=== PATIENT | male | born 1990 | race Caucasian/White ===

== ENCOUNTER → 2018-07-07 | Outpatient (REF) | payer MEDICAID | LOC: M LAB REF 17:07 | DX: R30.0 Dysuria (principal) ==

== ENCOUNTER → 2018-08-18 | Outpatient (REF) | payer MEDICAID ==
[2018-08-18 18:03] LABS: ALBUMIN 4.2 GM/DL (3.2-5.2); ALBUMIN/GLOBULIN RATIO 1.24 (1.00-1.93); ALKALINE PHOSPHATASE 100 U/L (45-117); ALT/SGPT 79 U/L (12-78); ANION GAP 7 MEQ/L (8-16); AST/SGOT 28 U/L (7-37); BILIRUBIN,TOTAL 0.6 MG/DL (0.2-1.0); BLOOD UREA NITROGEN 13 MG/DL (7-18); CALCIUM LEVEL 8.8 MG/DL (8.5-10.1); CARBON DIOXIDE LEVEL 29 MEQ/L (21-32); CHLORIDE LEVEL 103 MEQ/L (98-107); CREATININE FOR GFR 1.08 MG/DL (0.70-1.30); FREE THYROXINE INDEX 3.3 % (1.4-3.8); GLOMERULAR FILTRATION RATE > 60.0 (>60); GLUCOSE, FASTING 84 MG/DL (70-100); MAGNESIUM LEVEL 2.1 MG/DL (1.8-2.4); POTASSIUM SERUM 4.1 MEQ/L (3.5-5.1); SODIUM LEVEL 139 MEQ/L (136-145); T UPTAKE 36 % (33-40); THYROXINE (T4) 9.1 UG/DL (4.5-12.0); TOTAL PROTEIN 7.6 GM/DL (6.4-8.2)
[2018-08-18 18:04] LABS: BASO # 0.1 10^3/uL (0.0-0.2); BASO % 0.7 % (0.0-1.0); EOS # 0.3 10^3/uL (0.0-0.50); EOS % 3.4 % (0.0-3.0); HEMATOCRIT 49.1 % (42.0-52.0); HEMOGLOBIN 16.8 g/dl (13.5-17.5); IMMATURE GRANULOCYTE % 0.4 % (0-3.0); LYMPH # 1.6 10^3/uL (1.5-6.5); LYMPH % 20.8 % (24.0-44.0); MEAN CORPUSCULAR HEMOGLOBIN 27.3 pg (27.0-33.0); MEAN CORPUSCULAR HGB CONC 34.2 g/dl (32.0-36.5); MEAN CORPUSCULAR VOLUME 79.8 fl (80.0-96.0); MONO # 0.9 10^3/uL (0.0-0.8); MONO % 12.3 % (0.0-5.0); NEUTROPHILS # 4.7 10^3/uL (1.8-7.7); NEUTROPHILS % 62.4 % (36.0-66.0); PLATELET COUNT, AUTOMATED 238 10^3/uL (150-450); RED BLOOD COUNT 6.15 10^6/uL (4.30-6.10); RED CELL DISTRIBUTION WIDTH 13.2 % (11.5-14.5); TOTAL 25(OH) VITAMIN D 21.1 NG/ML (30.0-100.0); WHITE BLOOD COUNT 7.6 10^3/uL (4.0-10.0)
[2018-08-18 18:20] LABS: ESTIMATED AVERAGE GLUCOSE 108 MG/DL (60-110); HEMOGLOBIN A1c 5.4 %
[2018-08-25 00:40] LABS: SUMMARY FINAL (.)
== END ==
LOC: M LAB REF 17:14
DX: F84.0 Autistic disorder (principal)
CPT/HCPCS: 83735

== ENCOUNTER → 2019-01-09 | Outpatient (REF) | payer OTHER, MEDICAID ==
[2019-01-09 14:21] LABS: BASO % 0.6 % (0.0-1.0); EOS # 0.1 10^3/uL (0.0-0.50); EOS % 2.2 % (0.0-3.0); HEMATOCRIT 50.4 % (42.0-52.0); HEMOGLOBIN 16.6 g/dl (13.5-17.5); LYMPH # 1.8 10^3/uL (1.5-6.5); LYMPH % 32.8 % (24.0-44.0); MEAN CORPUSCULAR HEMOGLOBIN 27.3 pg (27.0-33.0); MEAN CORPUSCULAR HGB CONC 32.9 g/dl (32.0-36.5); MEAN CORPUSCULAR VOLUME 82.9 fl (80.0-96.0); MONO # 0.5 10^3/uL (0.0-0.8); MONO % 9.9 % (0.0-5.0); NEUTROPHILS % 54.3 % (36.0-66.0); PLATELET COUNT, AUTOMATED 237 10^3/uL (150-450); RED BLOOD COUNT 6.08 10^6/uL (4.30-6.10); WHITE BLOOD COUNT 5.5 10^3/uL (4.0-10.0)
[2019-01-09 14:56] LABS: HEMOGLOBIN A1c 5.3 %
[2019-01-09 15:07] LABS: ALBUMIN 4.1 GM/DL (3.2-5.2); ALT/SGPT 51 U/L (12-78); BILIRUBIN,TOTAL 0.7 MG/DL (0.2-1.0); BLOOD UREA NITROGEN 13 MG/DL (7-18); CALCIUM LEVEL 8.7 MG/DL (8.5-10.1); CARBON DIOXIDE LEVEL 29 MEQ/L (21-32); CHLORIDE LEVEL 105 MEQ/L (98-107); CHOLESTEROL LEVEL 188 MG/DL (<200); CHOLESTEROL RISK RATIO 4.372 (<5); CREATININE FOR GFR 1.09 MG/DL (0.70-1.30); FREE T4 0.96 NG/DL (0.76-1.46); GLOMERULAR FILTRATION RATE > 60.0 (>60); GLUCOSE, FASTING 85 MG/DL (70-100); HDL CHOLESTEROL 43 MG/DL (>40); LDL CHOLESTEROL 103 MG/DL (<100); NON-HDL-C 145 MG/DL; POTASSIUM SERUM 3.9 MEQ/L (3.5-5.1); SODIUM LEVEL 140 MEQ/L (136-145); TOTAL 25(OH) VITAMIN D 23.7 NG/ML (30.0-100.0); TOTAL PROTEIN 7.5 GM/DL (6.4-8.2); TRIGLYCERIDES LEVEL 208 MG/DL (<150)
[2019-01-11 00:06] LABS: Lyme Disease IgG/IgM Antibodie <0.91 ISR (0.00-0.90); Lyme Disease IgM Ab Quantitati <0.80 index (0.00-0.79)
== END ==
LOC: M LAB REF 12:40
PROVIDERS: ATTEND Family Medicine
DX: Z13.228 Encounter for screening for other metabolic disorders (principal)

== ENCOUNTER → 2019-04-04 | Outpatient (REF) | payer OTHER, MEDICAID ==
[2019-04-04 18:02] LABS: BASO % 0.5 % (0.0-1.0); EOS # 0.1 10^3/uL (0.0-0.50); EOS % 2.3 % (0.0-3.0); HEMATOCRIT 47.6 % (42.0-52.0); HEMOGLOBIN 16.1 g/dl (13.5-17.5); LYMPH # 1.8 10^3/uL (1.5-6.5); LYMPH % 30.9 % (24.0-44.0); MEAN CORPUSCULAR HEMOGLOBIN 27.5 pg (27.0-33.0); MEAN CORPUSCULAR HGB CONC 33.8 g/dl (32.0-36.5); MEAN CORPUSCULAR VOLUME 81.4 fl (80.0-96.0); MONO # 0.5 10^3/uL (0.0-0.8); NEUTROPHILS # 3.2 10^3/uL (1.8-7.7); NEUTROPHILS % 56.8 % (36.0-66.0); PLATELET COUNT, AUTOMATED 255 10^3/uL (150-450); RED BLOOD COUNT 5.85 10^6/uL (4.30-6.10); WHITE BLOOD COUNT 5.7 10^3/uL (4.0-10.0)
[2019-04-04 18:16] LABS: ALBUMIN 4.3 GM/DL (3.2-5.2); ALT/SGPT 48 U/L (12-78); BILIRUBIN,TOTAL 0.7 MG/DL (0.2-1.0); BLOOD UREA NITROGEN 13 MG/DL (7-18); CALCIUM LEVEL 9.1 MG/DL (8.5-10.1); CARBON DIOXIDE LEVEL 30 MEQ/L (21-32); CHLORIDE LEVEL 106 MEQ/L (98-107); CREATININE FOR GFR 1.02 MG/DL (0.70-1.30); FREE THYROXINE INDEX 3.2 % (1.4-3.8); GLOMERULAR FILTRATION RATE > 60.0 (>60); GLUCOSE, FASTING 81 MG/DL (70-100); POTASSIUM SERUM 4.2 MEQ/L (3.5-5.1); SODIUM LEVEL 141 MEQ/L (136-145); T UPTAKE 34 % (33-40); THYROXINE (T4) 9.4 UG/DL (4.5-12.0); TOTAL 25(OH) VITAMIN D 35.5 NG/ML (30.0-100.0); TOTAL PROTEIN 7.4 GM/DL (6.4-8.2)
[2019-04-04 18:41] LABS: HEMOGLOBIN A1c 5.7 %
== END ==
LOC: M LAB REF 16:45
PROVIDERS: ATTEND Psychiatry & Neurology Child & Adolescent Psychiatry
DX: F33.2 Major depressive disorder, recurrent severe without psychotic features (principal)

== ENCOUNTER → 2019-07-06 | Outpatient (REF) | payer OTHER, MEDICAID ==
[2019-07-06 16:58] LABS: BASO % 0.7 % (0.0-1.0); EOS # 0.1 10^3/uL (0.0-0.5); EOS % 2.3 % (0.0-3.0); HEMATOCRIT 48.1 % (42.0-52.0); HEMOGLOBIN 15.9 g/dl (13.5-17.5); LYMPH # 1.4 10^3/uL (1.5-5.0); LYMPH % 32.6 % (24.0-44.0); MEAN CORPUSCULAR HEMOGLOBIN 26.9 pg (27.0-33.0); MEAN CORPUSCULAR HGB CONC 33.1 g/dl (32.0-36.5); MEAN CORPUSCULAR VOLUME 81.5 fl (80.0-96.0); MONO # 0.4 10^3/uL (0.0-0.8); MONO % 8.6 % (0.0-5.0); NEUTROPHILS # 2.5 10^3/uL (1.5-8.5); NEUTROPHILS % 55.6 % (36.0-66.0); PLATELET COUNT, AUTOMATED 244 10^3/uL (150-450); WHITE BLOOD COUNT 4.4 10^3/uL (4.0-10.0)
[2019-07-06 17:11] LABS: ALBUMIN 4.5 GM/DL (3.2-5.2); ALT/SGPT 30 U/L (12-78); BLOOD UREA NITROGEN 14 MG/DL (7-18); CALCIUM LEVEL 9.6 MG/DL (8.5-10.1); CARBON DIOXIDE LEVEL 32 MEQ/L (21-32); CHLORIDE LEVEL 103 MEQ/L (98-107); CHOLESTEROL LEVEL 155 MG/DL (<200); CREATININE FOR GFR 1.15 MG/DL (0.70-1.30); FREE T4 1.07 NG/DL (0.76-1.46); GLOMERULAR FILTRATION RATE > 60.0 (>60); GLUCOSE, FASTING 79 MG/DL (70-100); HDL CHOLESTEROL 52 MG/DL (>40); LDL CHOLESTEROL 78 MG/DL (<100); NON-HDL-C 103 MG/DL; POTASSIUM SERUM 3.8 MEQ/L (3.5-5.1); SODIUM LEVEL 140 MEQ/L (136-145); TOTAL PROTEIN 7.8 GM/DL (6.4-8.2); TRIGLYCERIDES LEVEL 125 MG/DL (<150)
[2019-07-06 17:13] LABS: TOTAL 25(OH) VITAMIN D 47.8 NG/ML (30.0-100.0)
[2019-07-06 17:29] LABS: HEMOGLOBIN A1c 5.2 %
== END ==
LOC: M LAB REF 16:21
PROVIDERS: ATTEND Family Medicine
DX: Z13.228 Encounter for screening for other metabolic disorders (principal)

== ENCOUNTER → 2019-10-04 | Outpatient (REF) | payer OTHER, MEDICAID ==
[2019-10-04 15:15] LABS: ALBUMIN 4.7 GM/DL (3.2-5.2); ALT/SGPT 31 U/L (12-78); BILIRUBIN,TOTAL 0.8 MG/DL (0.2-1.0); BLOOD UREA NITROGEN 16 MG/DL (7-18); CALCIUM LEVEL 9.6 MG/DL (8.5-10.1); CARBON DIOXIDE LEVEL 33 MEQ/L (21-32); CHLORIDE LEVEL 103 MEQ/L (98-107); CREATININE FOR GFR 1.24 MG/DL (0.70-1.30); GLOMERULAR FILTRATION RATE > 60.0 (>60); GLUCOSE, FASTING 82 MG/DL (70-100); POTASSIUM SERUM 4.4 MEQ/L (3.5-5.1); SODIUM LEVEL 141 MEQ/L (136-145); TOTAL PROTEIN 7.7 GM/DL (6.4-8.2)
[2019-10-04 15:31] LABS: HEMOGLOBIN A1c 5.4 %
== END ==
LOC: M LAB REF 13:10
PROVIDERS: ATTEND Family Medicine
DX: R73.03 Prediabetes (principal)

== ENCOUNTER → 2020-04-28 | Outpatient (REF) | payer OTHER, MEDICAID ==
[2020-04-28 18:05] LABS: ALBUMIN 4.5 GM/DL (3.2-5.2); ALT/SGPT 32 U/L (12-78); BLOOD UREA NITROGEN 14 MG/DL (7-18); CALCIUM LEVEL 9.2 MG/DL (8.5-10.1); CARBON DIOXIDE LEVEL 33 MEQ/L (21-32); CHLORIDE LEVEL 102 MEQ/L (98-107); CHOLESTEROL LEVEL 165 MG/DL (<200); CHOLESTEROL RISK RATIO 3.666 (<5); CREATININE FOR GFR 1.03 MG/DL (0.70-1.30); GLOMERULAR FILTRATION RATE > 60.0 (>60); GLUCOSE, FASTING 79 MG/DL (70-100); HDL CHOLESTEROL 45 MG/DL (>40); LDL CHOLESTEROL 96 MG/DL (<100); NON-HDL-C 120 MG/DL; SODIUM LEVEL 139 MEQ/L (136-145); TOTAL PROTEIN 7.5 GM/DL (6.4-8.2); TRIGLYCERIDES LEVEL 120 MG/DL (<150)
[2020-04-28 18:43] LABS: HEMOGLOBIN A1c 5.3 %
== END ==
LOC: M LAB REF 17:20
PROVIDERS: ATTEND Family Medicine Addiction Medicine
DX: R73.03 Prediabetes (principal)

== ENCOUNTER → 2020-07-17 | Outpatient (REF) | payer OTHER, MEDICAID ==
[2020-07-17 14:04] LABS: ALBUMIN 4.4 GM/DL (3.2-5.2); ALT/SGPT 40 U/L (12-78); BILIRUBIN,TOTAL 0.9 MG/DL (0.2-1.0); BLOOD UREA NITROGEN 15 MG/DL (7-18); CALCIUM LEVEL 9.3 MG/DL (8.5-10.1); CARBON DIOXIDE LEVEL 29 MEQ/L (21-32); CHLORIDE LEVEL 103 MEQ/L (98-107); CHOLESTEROL LEVEL 177 MG/DL (<200); CHOLESTEROL RISK RATIO 3.339 (<5); CREATININE FOR GFR 1.08 MG/DL (0.70-1.30); GLOMERULAR FILTRATION RATE > 60.0 (>60); GLUCOSE, FASTING 86 MG/DL (70-100); HDL CHOLESTEROL 53 MG/DL (>40); LDL CHOLESTEROL 101 MG/DL (<100); NON-HDL-C 124 MG/DL; POTASSIUM SERUM 4.3 MEQ/L (3.5-5.1); SODIUM LEVEL 140 MEQ/L (136-145); TOTAL PROTEIN 7.6 GM/DL (6.4-8.2); TRIGLYCERIDES LEVEL 115 MG/DL (<150)
== END ==
LOC: M LAB REF 12:07
PROVIDERS: ATTEND Family Medicine Addiction Medicine
DX: R73.03 Prediabetes (principal)

== ENCOUNTER → 2020-07-22 | Outpatient (REF) | payer OTHER, MEDICAID ==
[2020-07-22 14:41] LABS: HEMOGLOBIN A1c 5.2 %
== END ==
LOC: M LAB REF 12:31
PROVIDERS: ATTEND Family Medicine Addiction Medicine
DX: R73.03 Prediabetes (principal)

== ENCOUNTER → 2021-02-20 | Outpatient (REF) | payer OTHER, MEDICAID ==
[2021-02-20 19:34] LABS: BLOOD UREA NITROGEN 12 MG/DL (7-18); CARBON DIOXIDE LEVEL 35 MEQ/L (21-32); CHLORIDE LEVEL 102 MEQ/L (98-107); CREATININE FOR GFR 0.93 MG/DL (0.70-1.30); GLOMERULAR FILTRATION RATE > 60.0 (>60); GLUCOSE, FASTING 88 MG/DL (70-100); POTASSIUM SERUM 4.8 MEQ/L (3.5-5.1); SODIUM LEVEL 137 MEQ/L (136-145)
[2021-02-20 19:35] LABS: ALBUMIN 4.2 GM/DL (3.2-5.2); ALT/SGPT 62 U/L (12-78); BILIRUBIN,TOTAL 0.7 MG/DL (0.2-1.0); CHOLESTEROL LEVEL 179 MG/DL (<200); HDL CHOLESTEROL 50 MG/DL (>40); LDL CHOLESTEROL 93 MG/DL (<100); NON-HDL-C 129 MG/DL; TOTAL PROTEIN 7.5 GM/DL (6.4-8.2); TRIGLYCERIDES LEVEL 178 MG/DL (<150)
== END ==
LOC: M LAB REF 16:24
PROVIDERS: ATTEND Family Medicine Addiction Medicine
DX: Z00.01 Encounter for general adult medical examination with abnormal findings (principal); R73.03 Prediabetes

== ENCOUNTER 2021-03-30 16:02 | Emergency (ER) | payer MEDICAID, OTHER ==
[~2021-03-30] VITALS: Ht 185.4 cm; Wt 104.6 kg
[2021-03-30] MEDS ORDERED: FLUO40CA (16:15)
[2021-03-30] MEDS ORDERED: PRAZ5CAP (16:15)
[2021-03-30] MEDS ORDERED: ZIPR60CA11 (16:15)
[2021-03-30] MEDS ORDERED: TRAZ-257 (16:15)
[2021-03-30 18:49] LABS: HEMATOCRIT 48.1 % (42.0-52.0); HEMOGLOBIN 15.7 g/dl (13.5-17.5); MEAN CORPUSCULAR HEMOGLOBIN 27.7 pg (27.0-33.0); MEAN CORPUSCULAR HGB CONC 32.6 g/dl (32.0-36.5); MEAN CORPUSCULAR VOLUME 84.8 fl (80.0-96.0); PLATELET COUNT, AUTOMATED 234 10^3/uL (150-450); RED BLOOD COUNT 5.67 10^6/uL (4.30-6.10)
--- NOTE | 2021-03-30 19:12 | REP ---
INDICATION: central chest pain. COMPARISON: None. TECHNIQUE: Portable FINDINGS: The cardiomediastinal silhouette is within normal limits. The heart is not enlarged. The lung cerna are clear. The pleural angles are sharp. The osseous structures are within normal limits. IMPRESSION: No acute cardiopulmonary disease. <Electronically signed by Berry Brian > 03/30/21 [id number]
[2021-03-30 19:16] LABS: ALBUMIN 4.1 GM/DL (3.2-5.2); ALT/SGPT 74 U/L (12-78); BILIRUBIN,TOTAL 0.5 MG/DL (0.2-1.0); BLOOD UREA NITROGEN 19 MG/DL (7-18); CALCIUM LEVEL 8.9 MG/DL (8.5-10.1); CARBON DIOXIDE LEVEL 29 MEQ/L (21-32); CHLORIDE LEVEL 103 MEQ/L (98-107); CK-MB VALUE MASS < 1.0 NG/ML (<3.6); CPK CREATINE PHOSPHOKINASE 120 U/L (39-308); CREATININE FOR GFR 1.02 MG/DL (0.70-1.30); GLOMERULAR FILTRATION RATE > 60.0 (>60); GLUCOSE, FASTING 85 MG/DL (70-100); LIPASE 124 U/L (73-393); MB/CK RELATIVE INDEX 0.83 (< OR =4); SODIUM LEVEL 139 MEQ/L (136-145); TOTAL PROTEIN 7.4 GM/DL (6.4-8.2); TROPONIN I < 0.02 NG/ML (< 0.10)
[2021-03-30 19:39] VITALS: BP 129/82
--- NOTE | 2021-03-30 20:42 | ECGEPIP ---
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 Order Number: [id number] Reading MD: Adwoa Schwab Measurements Intervals [place] Rate: 64 P: 55 UT: 128 QRS: 73 QRSD: 106 T: 24 QT: 416 QTc: 429 Interpretive Statements Normal sinus rhythm No prior Electronically Signed on 03-30-2021 20:42:00 EDT by Adwoa Schwab
== END 2021-03-30 19:41 | disposition home or self-care (01) ==
LOC: M ED 16:02
DX: R07.89 Other chest pain (principal); Z79.899 Other long term (current) drug therapy

== ENCOUNTER 2022-03-01 18:49 | Emergency (ER) | payer OTHER ==
[~2022-03-01] VITALS: Ht 185.4 cm; Wt 119.4 kg
[~2022-03-01 18:49] MED LIST: FLUO40CA; PRAZ5CAP; TRAZ-257; ZIPR60CA11
[2022-03-01] MEDS ORDERED: ZIPR40CA11 (19:01)
[2022-03-01] MEDS ORDERED: VITA200016 (19:01)
[2022-03-01] MEDS ORDERED: GUAN2TAB15 (19:01)
[2022-03-01] MEDS ORDERED: HEPATITIS B VACCINE 20MCG/ML 1ML SYRINGE (ADULT DOSE) IM.IMMUN ONE (23:30)
[2022-03-01] MEDS ORDERED: EXPOSURE KIT-ADULT 7 DAY SUPPLY PO ONE (23:30)
[2022-03-01] MEDS ORDERED: BOOSTRIX/ADACEL VACCINE (DIPHTH/PERTUSS/ACELL/TETANUS) 0.5ML SYR IM.IMMUN ONE (23:30)
[2022-03-01] MEDS ORDERED: EMTR1TAB16 PO (23:32)
[2022-03-01] MEDS ORDERED: RALT40TA PO (23:32)
[2022-03-02] MEDS ORDERED: RALTEGRAVIR 400 MG TAB (ISENTRESS) PO SCH
[2022-03-02 00:14] LABS: BASO % 0.5 % (0.0-1.0); EOS # 0.2 10^3/uL (0.0-0.5); EOS % 2.7 % (0.0-3.0); HEMATOCRIT 45.2 % (42.0-52.0); HEMOGLOBIN 15.4 g/dl (13.5-17.5); LYMPH # 2.4 10^3/uL (1.5-5.0); LYMPH % 31.8 % (24.0-44.0); MEAN CORPUSCULAR HEMOGLOBIN 27.7 pg (27.0-33.0); MEAN CORPUSCULAR HGB CONC 34.1 g/dl (32.0-36.5); MEAN CORPUSCULAR VOLUME 81.4 fl (80.0-96.0); MONO # 0.8 10^3/uL (0.0-0.8); MONO % 9.8 % (2.0-8.0); NEUTROPHILS # 4.2 10^3/uL (1.5-8.5); NEUTROPHILS % 54.3 % (36.0-66.0); PLATELET COUNT, AUTOMATED 282 10^3/uL (150-450); RED BLOOD COUNT 5.55 10^6/uL (4.30-6.10); WHITE BLOOD COUNT 7.7 10^3/uL (4.0-10.0)
[2022-03-02 00:31] LABS: ALBUMIN 4.3 GM/DL (3.2-5.2); ALT/SGPT 141 U/L (12-78); BILIRUBIN,TOTAL 0.5 MG/DL (0.2-1.0); BLOOD UREA NITROGEN 19 MG/DL (7-18); CALCIUM LEVEL 8.9 MG/DL (8.5-10.1); CARBON DIOXIDE LEVEL 29 MEQ/L (21-32); CHLORIDE LEVEL 103 MEQ/L (98-107); CREATININE FOR GFR 0.98 MG/DL (0.70-1.30); GLOMERULAR FILTRATION RATE > 60.0 (>60); GLUCOSE, FASTING 94 MG/DL (70-100); SODIUM LEVEL 139 MEQ/L (136-145); TOTAL PROTEIN 7.7 GM/DL (6.4-8.2)
[2022-03-02 01:32] VITALS: BP 128/68
[2022-03-02] MEDS ORDERED: RALTEGRAVIR 400 MG TAB (ISENTRESS) PO ONE (02:00)
[2022-03-02] MEDS ORDERED: TRUVADA 200MG/300MG TABLET PO ONE (02:00)
[2022-03-02 08:59] LABS: HEPATITIS B SURFACE ANTIBODY POSITIVE (POSITIVE)
[2022-03-02 09:10] LABS: HEPATITIS B SURFACE ANTIGEN NEGATIVE (NEGATIVE)
[2022-03-02 09:38] LABS: HEPATITIS C VIRUS ABY INDEX 0.1 INDEX (<0.8)
[2022-03-02 09:39] LABS: HIV 1&2 SCREEN CENTAUR NEGATIVE (NEGATIVE)
[2022-03-03] MEDS ORDERED: TRUVADA 200MG/300MG TABLET PO SCH
== END 2022-03-02 01:44 | disposition home or self-care (01) ==
LOC: M ED 18:49
DX: Z77.21 Contact with and (suspected) exposure to potentially hazardous body fluids (principal)

== ENCOUNTER 2022-05-10 19:40 | Inpatient (IN) | payer OTHER ==
[~2022-05-10] VITALS: Ht 182.9 cm; Wt 120.5 kg
[~2022-05-10 19:40] MED LIST changes: +EMTR1TAB16 PO; -FLUO40CA; +FLUO40CA PO; +GUAN2TAB15 PO; -PRAZ5CAP; +PRAZ5CAP PO; +RALT40TA PO; -TRAZ-257; +TRAZ-257 PO; +VITA200016 PO; +ZIPR40CA11 PO; -ZIPR60CA11; +ZIPR60CA11 PO
[2022-05-10 21:43] LABS: HEMATOCRIT 46.8 % (42.0-52.0); HEMOGLOBIN 16.2 g/dl (13.5-17.5); MEAN CORPUSCULAR HEMOGLOBIN 28.4 pg (27.0-33.0); MEAN CORPUSCULAR HGB CONC 34.6 g/dl (32.0-36.5); MEAN CORPUSCULAR VOLUME 82.1 fl (80.0-96.0); PLATELET COUNT, AUTOMATED 260 10^3/uL (150-450); WHITE BLOOD COUNT 6.4 10^3/uL (4.0-10.0)
[2022-05-10 22:24] LABS: AMPHETAMINES LEVEL URINE NEGATIVE (NEGATIVE); BARBITURATES URINE NEGATIVE (NEGATIVE); BENZODIAZEPINES URINE NEGATIVE (NEGATIVE); CANNABINOIDS URINE NEGATIVE (NEGATIVE); COCAINE METABOLITE URINE NEGATIVE (NEGATIVE); METHADONE URINE NEGATIVE (NEGATIVE); OPIATES URINE NEGATIVE (NEGATIVE); PHENCYCLIDINE URINE NEGATIVE (NEGATIVE)
[2022-05-10 22:37] LABS: ACETAMINOPHEN LEVEL < 2.0 UG/ML (10.0-30.0); ALT/SGPT 111 U/L (12-78); BILIRUBIN,DIRECT 0.1 MG/DL (0.0-0.2); BILIRUBIN,TOTAL 0.5 MG/DL (0.2-1.0); BLOOD UREA NITROGEN 13 MG/DL (7-18); CALCIUM LEVEL 9.7 MG/DL (8.5-10.1); CARBON DIOXIDE LEVEL 28 MEQ/L (21-32); CHLORIDE LEVEL 104 MEQ/L (98-107); CREATININE FOR GFR 1.09 MG/DL (0.70-1.30); ETHYL ALCOHOL (ETHANOL) < 0.003 % (0.000-0.010); GLOMERULAR FILTRATION RATE > 60.0 (>60); GLUCOSE, FASTING 93 MG/DL (70-100); POTASSIUM SERUM 3.8 MEQ/L (3.5-5.1); SALICYLATE LEVEL < 1.7 MG/DL (5.0-30.0); SODIUM LEVEL 137 MEQ/L (136-145); TOTAL PROTEIN 7.5 GM/DL (6.4-8.2)
[2022-05-11 00:25] LABS: RSV AMPLIFICATION NEGATIVE (NEGATIVE)
[2022-05-11] MEDS ORDERED: LORazepam 2 MG TAB PO ONE (04:00)
[2022-05-11] MEDS ORDERED: HYDR-3363 PO (08:49)
[2022-05-11] MEDS ORDERED: HOME MED LIST COMPLETE! XX SCH (08:55)
[2022-05-11] MEDS: ZIPRASIDONE 20MG CAPSULE (GEODON) PO SCH ×2 (10:18→21:49)
[2022-05-11] MEDS: guanFACINE 1 MG TAB PO SCH ×2 (10:19→21:49)
[2022-05-11] MEDS: FLUoxetine 20MG CAP PO SCH (21:49)
[2022-05-11] MEDS: traZODone 100 MG TAB PO SCH (21:49)
[2022-05-11] MEDS: PRAZOSIN 1 MG CAP PO SCH (22:45)
[2022-05-12] MEDS: ZIPRASIDONE 20MG CAPSULE (GEODON) PO SCH ×2 (08:57→22:24)
[2022-05-12] MEDS: guanFACINE 1 MG TAB PO SCH ×2 (08:58→22:25)
[2022-05-12] MEDS: traZODone 100 MG TAB PO SCH (22:24)
[2022-05-12] MEDS: PRAZOSIN 1 MG CAP PO SCH (22:24)
[2022-05-12] MEDS: FLUoxetine 20MG CAP PO SCH (22:25)
[2022-05-13] MEDS: ZIPRASIDONE 20MG CAPSULE (GEODON) PO SCH ×2 (10:26→22:48)
[2022-05-13] MEDS: guanFACINE 1 MG TAB PO SCH ×2 (12:03→22:47)
[2022-05-13] MEDS ORDERED: NICOTINE 21MG/24HR 1 EA TRANSDERMAL TD PRN (19:55)
[2022-05-13] MEDS ORDERED: traZODone 100 MG TAB PO SCH (19:55)
[2022-05-13] MEDS ORDERED: OLANZapine ORAL DISINTEGRATING TAB 5MG PO PRN (19:55)
[2022-05-13] MEDS ORDERED: MOM 30ML SUSPENSION UDC PO PRN (19:55)
[2022-05-13] MEDS ORDERED: ACETAMINOPHEN TAB 650MG DOSE (2X325MG) PO PRN (19:55)
[2022-05-13 22:26] VITALS: BP 132/83
[2022-05-13] MEDS: traZODone 100 MG TAB PO SCH (22:47)
[2022-05-13] MEDS: PRAZOSIN 1 MG CAP PO SCH (22:48)
[2022-05-14 06:44] VITALS: BP 115/62
[2022-05-14] MEDS: guanFACINE 1 MG TAB PO SCH ×2 (10:02→21:18)
[2022-05-14] MEDS: VITAMIN D 1,000 INTERNATIONAL UNITS TABLET PO SCH (10:02)
[2022-05-14] MEDS: ZIPRASIDONE 20MG CAPSULE (GEODON) PO SCH ×2 (10:02→21:18)
[2022-05-14] MEDS ORDERED: risperiDONE 1 MG TAB PO PRN (13:35)
[2022-05-14 17:30] VITALS: BP 120/62
[2022-05-14] MEDS: PRAZOSIN 1 MG CAP PO SCH (21:18)
[2022-05-14] MEDS: traZODone 100 MG TAB PO SCH (21:18)
[2022-05-15 06:17] VITALS: BP 119/69
[2022-05-15 07:54] LABS: CHOLESTEROL RISK RATIO 5.487 (<5)
[2022-05-15] MEDS: buPROPion **XL** TABLET 150MG (WELLBUTRIN XL) PO SCH (09:15)
[2022-05-15] MEDS: guanFACINE 1 MG TAB PO SCH ×2 (09:15→21:34)
[2022-05-15] MEDS: ZIPRASIDONE 20MG CAPSULE (GEODON) PO SCH ×2 (09:15→21:34)
[2022-05-15] MEDS: VITAMIN D 1,000 INTERNATIONAL UNITS TABLET PO SCH (09:18)
[2022-05-15 18:09] VITALS: BP 128/81
[2022-05-15] MEDS: traZODone 100 MG TAB PO SCH (21:34)
[2022-05-15] MEDS: PRAZOSIN 1 MG CAP PO SCH (21:34)
[2022-05-16] MEDS: VITAMIN D 1,000 INTERNATIONAL UNITS TABLET PO SCH (09:07)
[2022-05-16] MEDS: guanFACINE 1 MG TAB PO SCH ×2 (09:07→21:44)
[2022-05-16] MEDS: buPROPion **XL** TABLET 150MG (WELLBUTRIN XL) PO SCH (09:08)
[2022-05-16] MEDS: ZIPRASIDONE 20MG CAPSULE (GEODON) PO SCH ×2 (09:08→21:44)
[2022-05-16 17:33] VITALS: BP 119/76
[2022-05-16] MEDS: PRAZOSIN 1 MG CAP PO SCH (21:43)
[2022-05-16] MEDS: traZODone 100 MG TAB PO SCH (21:44)
[2022-05-16] MEDS: MAALOX 30 ML SUSP *UDC PO PRN (23:55)
[2022-05-17 07:35] VITALS: BP 120/84
[2022-05-17] MEDS: guanFACINE 1 MG TAB PO SCH ×2 (09:09→21:28)
[2022-05-17] MEDS: VITAMIN D 1,000 INTERNATIONAL UNITS TABLET PO SCH (09:09)
[2022-05-17] MEDS: buPROPion **XL** TABLET 150MG (WELLBUTRIN XL) PO SCH (09:10)
[2022-05-17] MEDS: ZIPRASIDONE 20MG CAPSULE (GEODON) PO SCH ×2 (09:10→21:28)
[2022-05-17 16:00] VITALS: BP 136/70
[2022-05-17] MEDS: traZODone 100 MG TAB PO SCH (21:28)
[2022-05-17] MEDS: PRAZOSIN 1 MG CAP PO SCH (21:28)
[2022-05-17] MEDS: MAALOX 30 ML SUSP *UDC PO PRN (21:41)
[2022-05-18 06:28] VITALS: BP 117/77
[2022-05-18 07:39] VITALS: BP 117/77
[2022-05-18] MEDS: guanFACINE 1 MG TAB PO SCH (07:39)
[2022-05-18] MEDS: buPROPion **XL** TABLET 150MG (WELLBUTRIN XL) PO SCH (07:39)
[2022-05-18] MEDS: ZIPRASIDONE 20MG CAPSULE (GEODON) PO SCH (07:39)
[2022-05-18] MEDS: VITAMIN D 1,000 INTERNATIONAL UNITS TABLET PO SCH (07:40)
[2022-05-18] MEDS ORDERED: BUPR150T12 PO (08:27)
[2022-05-18] MEDS ORDERED: TRAZ-257 PO (08:27)
[2022-05-18] MEDS ORDERED: NICO21PAT TD (08:27)
[2022-05-18] MEDS ORDERED: ZIPR60CA11 PO (08:27)
[2022-05-18] MEDS ORDERED: GUAN1TA PO (08:27)
[2022-05-18] MEDS ORDERED: ZIPR40CA11 PO (08:27)
[2022-05-18] MEDS ORDERED: PRAZ5CAP PO (08:27)
[2022-05-18] MEDS ORDERED: risperiDONE 1 MG TAB PO SCH (08:30)
[2022-05-18] MEDS: MAALOX 30 ML SUSP *UDC PO PRN (10:47)
== END 2022-05-18 12:48 | disposition home or self-care (01) | DRG 753 ==
LOC: M ED 19:40 → M ED INP 05-13 20:59 → M PSY 05-13 21:22
PROVIDERS: ADMIT Student in an Organized Health Care Education/Training Program; ATTEND Student in an Organized Health Care Education/Training Program
DX: F31.9 Bipolar disorder, unspecified (principal); Z91.14 Patient's other noncompliance with medication regimen; E55.9 Vitamin D deficiency, unspecified; R73.03 Prediabetes; B88.8 Other specified infestations; F42.9 Obsessive-compulsive disorder, unspecified; F84.0 Autistic disorder; F90.9 Attention-deficit hyperactivity disorder, unspecified type; Z81.8 Family history of other mental and behavioral disorders; Z62.811 Personal history of psychological abuse in childhood; Z62.810 Personal history of physical and sexual abuse in childhood; Z79.899 Other long term (current) drug therapy; Z91.018 Allergy to other foods

== ENCOUNTER → 2022-12-02 | Outpatient (REF) | payer OTHER, MEDICAID ==
[~2022-12-02] MED LIST changes: +BUPR150T12 PO; +GUAN1TA PO; +HYDR-3363 PO; +NICO21PAT TD
[2022-12-02 18:51] LABS: ALBUMIN 4.2 G/DL (3.2-5.2); ALKALINE PHOSPHATASE 102 U/L (46-116); ALT/SGPT 165 U/L (7.0-40); AST/SGOT 61 U/L (<34); BILIRUBIN,TOTAL 0.6 MG/DL (0.3-1.2); BLOOD UREA NITROGEN 13 MG/DL (9-23); CALCIUM LEVEL 9.7 MG/DL (8.5-10.1); CARBON DIOXIDE LEVEL 28 MMOL/L (20-31); CHLORIDE LEVEL 105 MMOL/L (98-107); CREATININE FOR GFR 0.95 MG/DL (0.70-1.30); GLOMERULAR FILTRATION RATE > 60.0 (>60); GLUCOSE, FASTING 83 MG/DL (60-100); POTASSIUM SERUM 4.2 MMOL/L (3.5-5.1); SODIUM LEVEL 139 MMOL/L (136-145); TOTAL PROTEIN 7.1 G/DL (5.7-8.2)
[2022-12-02 18:52] LABS: FREE T4 1.09 NG/DL (0.89-1.76); THYROID STIMULATING HORMONE 1.838 uIU/ML (0.55-4.78)
[2022-12-02 18:53] LABS: TOTAL 25(OH) VITAMIN D 40.7 NG/ML (20.0-100.0)
[2022-12-02 18:58] LABS: BASO % 0.8 % (0.0-1.0); EOS # 0.1 10^3/uL (0.0-0.5); EOS % 2.5 % (0.0-3.0); HEMATOCRIT 47.9 % (42.0-52.0); HEMOGLOBIN 15.9 g/dl (13.5-17.5); LYMPH # 1.4 10^3/uL (1.5-5.0); LYMPH % 25.9 % (24.0-44.0); MEAN CORPUSCULAR HEMOGLOBIN 27.7 pg (27.0-33.0); MEAN CORPUSCULAR HGB CONC 33.2 g/dl (32.0-36.5); MEAN CORPUSCULAR VOLUME 83.4 fl (80.0-96.0); MONO # 0.6 10^3/uL (0.0-0.8); MONO % 12.1 % (2.0-8.0); NEUTROPHILS # 3.1 10^3/uL (1.5-8.5); NEUTROPHILS % 58.3 % (36.0-66.0); PLATELET COUNT, AUTOMATED 259 10^3/uL (150-450); RED BLOOD COUNT 5.74 10^6/uL (4.30-6.10); WHITE BLOOD COUNT 5.2 10^3/uL (4.0-10.0)
== END ==
LOC: M LAB REF 17:16
PROVIDERS: ATTEND Family Medicine Addiction Medicine
DX: E55.9 Vitamin D deficiency, unspecified (principal); E66.3 Overweight; R53.83 Other fatigue

== ENCOUNTER → 2023-01-11 | Outpatient (REF) | payer OTHER, MEDICAID ==
[2023-01-11 13:13] LABS: ALBUMIN 4.4 G/DL (3.2-5.2); ALKALINE PHOSPHATASE 104 U/L (46-116); ALT/SGPT 112 U/L (7.0-40); AST/SGOT 40 U/L (<34); BILIRUBIN,TOTAL 0.8 MG/DL (0.3-1.2); BLOOD UREA NITROGEN 17 MG/DL (9-23); CALCIUM LEVEL 9.4 MG/DL (8.5-10.1); CARBON DIOXIDE LEVEL 26 MMOL/L (20-31); CHLORIDE LEVEL 104 MMOL/L (98-107); CHOLESTEROL LEVEL 189 MG/DL (<200); CHOLESTEROL RISK RATIO 4.38 (<5); CREATININE FOR GFR 1.07 MG/DL (0.70-1.30); GLOMERULAR FILTRATION RATE > 60.0 (>60); GLUCOSE, FASTING 102 MG/DL (60-100); HDL CHOLESTEROL 43.1 MG/DL (>40); LDL CHOLESTEROL 70.9 MG/DL (<100); NON-HDL-C 145.9 MG/DL; SODIUM LEVEL 137 MMOL/L (136-145); TOTAL PROTEIN 7.4 G/DL (5.7-8.2); TRIGLYCERIDES LEVEL 375 MG/DL (<150)
[2023-01-11 13:15] LABS: THYROID STIMULATING HORMONE 1.337 uIU/ML (0.55-4.78); TOTAL 25(OH) VITAMIN D 41.1 NG/ML (20.0-100.0)
[2023-01-11 13:25] LABS: HEMOGLOBIN A1c 5.6 % (4.0-6.0)
== END ==
LOC: M LAB REF 12:02
PROVIDERS: ATTEND Family Medicine Addiction Medicine
DX: R73.03 Prediabetes (principal); E55.9 Vitamin D deficiency, unspecified

== ENCOUNTER 2023-06-10 20:59 | Emergency (ER) | payer OTHER ==
[~2023-06-10] VITALS: Ht 185.4 cm; Wt 59.1 kg
[~2023-06-10 20:59] MED LIST changes: +TRIA25CR TOP
[2023-06-10 22:04] LABS: HEMATOCRIT 43.9 % (42.0-52.0); HEMOGLOBIN 15.1 g/dl (13.5-17.5); MEAN CORPUSCULAR HEMOGLOBIN 28.5 pg (27.0-33.0); MEAN CORPUSCULAR HGB CONC 34.4 g/dl (32.0-36.5); PLATELET COUNT, AUTOMATED 268 10^3/uL (150-450); RED BLOOD COUNT 5.29 10^6/uL (4.30-6.10); WHITE BLOOD COUNT 6.6 10^3/uL (4.0-10.0)
[2023-06-10 22:24] LABS: ETHYL ALCOHOL (ETHANOL) < 0.003 % (0.000-0.010)
[2023-06-10 22:25] LABS: ACETAMINOPHEN LEVEL < 2.0 UG/ML (10.0-20.0); SALICYLATE LEVEL < 3.0 MG/DL (<30)
[2023-06-10 22:26] LABS: ALBUMIN 4.2 G/DL (3.2-5.2); ALKALINE PHOSPHATASE 108 U/L (46-116); ALT/SGPT 110 U/L (7.0-40); AST/SGOT 44 U/L (<34); BILIRUBIN,DIRECT 0.1 MG/DL (<0.4); BILIRUBIN,TOTAL 0.5 MG/DL (0.3-1.2); BLOOD UREA NITROGEN 20 MG/DL (9-23); CALCIUM LEVEL 9.5 MG/DL (8.5-10.1); CARBON DIOXIDE LEVEL 29 MMOL/L (20-31); CHLORIDE LEVEL 104 MMOL/L (98-107); CREATININE FOR GFR 1.21 MG/DL (0.70-1.30); GLOMERULAR FILTRATION RATE > 60.0 (>60); GLUCOSE, FASTING 107 MG/DL (60-100); POTASSIUM SERUM 4.1 MMOL/L (3.5-5.1); SODIUM LEVEL 140 MMOL/L (136-145); TOTAL PROTEIN 7.3 G/DL (5.7-8.2)
[2023-06-10 22:27] LABS: THYROID STIMULATING HORMONE 3.483 uIU/ML (0.55-4.78)
[2023-06-10] MEDS ORDERED: diphenhydrAMINE 50MG CAP PO ONE (22:30)
[2023-06-11 00:15] LABS: AMPHETAMINES LEVEL URINE NEGATIVE (NEGATIVE); BENZODIAZEPINES URINE NEGATIVE (NEGATIVE); PHENCYCLIDINE URINE NEGATIVE (NEGATIVE)
[2023-06-11 00:16] LABS: BARBITURATES URINE NEGATIVE (NEGATIVE); CANNABINOIDS URINE NEGATIVE (NEGATIVE); COCAINE METABOLITE URINE NEGATIVE (NEGATIVE); METHADONE URINE NEGATIVE (NEGATIVE); OPIATES URINE NEGATIVE (NEGATIVE)
[2023-06-11] MEDS ORDERED: MED REC IN PROGRESS XX SCH (08:30)
[2023-06-11] MEDS ORDERED: CITA20TA6 PO (09:11)
[2023-06-11] MEDS ORDERED: MELA10CA6 PO (09:11)
[2023-06-11] MEDS ORDERED: BUPR-365 PO (09:11)
[2023-06-11] MEDS ORDERED: VITA200032 PO (09:11)
[2023-06-11] MEDS ORDERED: ATOM25CA7 PO (09:11)
[2023-06-11] MEDS ORDERED: CLOT1CRE56 TOP (09:11)
[2023-06-11] MEDS ORDERED: PRAZ5CAP PO (09:11)
[2023-06-11] MEDS ORDERED: TRAZ1TAB14 PO (09:11)
[2023-06-11] MEDS ORDERED: ZIPR60CA11 PO (09:11)
[2023-06-11] MEDS ORDERED: VITACAP8 PO (09:11)
[2023-06-11] MEDS ORDERED: GUAN1TA PO (09:14)
[2023-06-11] MEDS ORDERED: HOME MED LIST COMPLETE! XX SCH (09:25)
[2023-06-11] MEDS: PRAZOSIN 1 MG CAP PO SCH (21:23)
[2023-06-11] MEDS: guanFACINE 1 MG TAB PO SCH (21:24)
[2023-06-12] MEDS: ATOMOXETINE HCL 40 MG CAP (STRATTERA) PO SCH ×3 (09:39→17:53)
[2023-06-12] MEDS: buPROPion **XL** TABLET 150MG (WELLBUTRIN XL) PO SCH (09:39)
[2023-06-12] MEDS: guanFACINE 1 MG TAB PO SCH ×2 (09:39→21:49)
[2023-06-12] MEDS: traZODone 50 MG TAB PO SCH (09:39)
[2023-06-12] MEDS: ZIPRASIDONE 20MG CAPSULE (GEODON) PO SCH (09:39)
[2023-06-12] MEDS: CitaloPRAM (CeleXA) 20 MG TAB PO SCH (09:39)
[2023-06-12] MEDS: PRAZOSIN 1 MG CAP PO SCH (21:49)
[2023-06-13] MEDS: traZODone 50 MG TAB PO SCH (09:12)
[2023-06-13] MEDS: buPROPion **XL** TABLET 150MG (WELLBUTRIN XL) PO SCH (09:12)
[2023-06-13] MEDS: ATOMOXETINE HCL 40 MG CAP (STRATTERA) PO SCH (09:12)
[2023-06-13 09:14] VITALS: BP 133/89
[2023-06-13] MEDS: CitaloPRAM (CeleXA) 20 MG TAB PO SCH (09:14)
[2023-06-13] MEDS: guanFACINE 1 MG TAB PO SCH (09:14)
[2023-06-13] MEDS: ZIPRASIDONE 20MG CAPSULE (GEODON) PO SCH (09:14)
[2023-06-13 12:18] VITALS: BP 129/82; TEMP 97.6; O2SAT 98
== END 2023-06-13 12:26 | disposition home or self-care (01) ==
LOC: M ED 20:59
DX: F31.9 Bipolar disorder, unspecified (principal); Z91.52 Personal history of nonsuicidal self-harm; F84.0 Autistic disorder; J30.89 Other allergic rhinitis; Z79.899 Other long term (current) drug therapy; Z91.010 Allergy to peanuts; Z91.02 Food additives allergy status

== ENCOUNTER → 2024-03-30 | Outpatient (REF) | payer OTHER, MEDICAID ==
[~2024-03-30] MED LIST changes: +ATOM25CA7 PO; +BUPR-365 PO; +CITA20TA6 PO; +CLOT1CRE56 TOP; +MELA10CA6 PO; +TRAZ1TAB14 PO; +VITA200032 PO; +VITACAP8 PO
[2024-03-30 14:00] LABS: BASO % 0.7 % (0.0-1.0); EOS # 0.1 10^3/uL (0.0-0.5); HEMATOCRIT 48.6 % (42.0-52.0); HEMOGLOBIN 16.4 g/dl (13.5-17.5); LYMPH # 1.3 10^3/uL (1.5-5.0); LYMPH % 29.5 % (24.0-44.0); MEAN CORPUSCULAR HEMOGLOBIN 28.3 pg (27.0-33.0); MEAN CORPUSCULAR HGB CONC 33.7 g/dl (32.0-36.5); MEAN CORPUSCULAR VOLUME 83.9 fl (80.0-96.0); MONO # 0.3 10^3/uL (0.0-0.8); MONO % 7.1 % (2.0-8.0); NEUTROPHILS # 2.6 10^3/uL (1.5-8.5); NEUTROPHILS % 59.2 % (36.0-66.0); PLATELET COUNT, AUTOMATED 226 10^3/uL (150-450); RED BLOOD COUNT 5.79 10^6/uL (4.30-6.10); WHITE BLOOD COUNT 4.4 10^3/uL (4.0-10.0)
[2024-03-30 14:02] LABS: ALBUMIN 4.2 G/DL (3.2-5.2); ALKALINE PHOSPHATASE 93 U/L (46-116); ALT/SGPT 97 U/L (7.0-40); AST/SGOT 28 U/L (<34); BILIRUBIN,TOTAL 0.6 MG/DL (0.3-1.2); BLOOD UREA NITROGEN 17 MG/DL (9-23); CALCIUM LEVEL 9.7 MG/DL (8.5-10.1); CARBON DIOXIDE LEVEL 31 MMOL/L (20-31); CHLORIDE LEVEL 104 MMOL/L (98-107); CHOLESTEROL LEVEL 235 MG/DL (<200); CHOLESTEROL RISK RATIO 6.43 (<5); CREATININE FOR GFR 1.07 MG/DL (0.70-1.30); GLOMERULAR FILTRATION RATE > 60.0 (>60); GLUCOSE, FASTING 174 MG/DL (60-100); HDL CHOLESTEROL 36.5 MG/DL (>40); NON-HDL-C 198.5 MG/DL; POTASSIUM SERUM 4.1 MMOL/L (3.5-5.1); SODIUM LEVEL 138 MMOL/L (136-145); TOTAL PROTEIN 7.2 G/DL (5.7-8.2); TRIGLYCERIDES LEVEL 480 MG/DL (<150)
[2024-03-30 14:05] LABS: THYROID STIMULATING HORMONE 1.865 uIU/ML (0.55-4.78)
[2024-03-30 14:12] LABS: HEMOGLOBIN A1c 5.5 % (4.0-6.0)
== END ==
LOC: M LAB REF 12:18
PROVIDERS: ATTEND Family Medicine Addiction Medicine
DX: Z68.31 Body mass index [BMI] 31.0-31.9, adult (principal)

== ENCOUNTER 2024-11-18 00:44 | Emergency (ER) | payer MEDICAID, OTHER ==
[~2024-11-18] VITALS: Ht 182.9 cm; Wt 130.0 kg
[~2024-11-18 00:44] MED LIST changes: -ZIPR40CA11 PO; +ZIPR40CA21 PO; -ZIPR60CA11 PO; +ZIPR60CA21 PO
[2024-11-18] MEDS ORDERED: IBUP-1022 PO (01:44)
[2024-11-18] MEDS ORDERED: AMOX875T2 PO (01:44)
[2024-11-18] MEDS: ACETAMINOPHEN 325 MG TAB PO ONE (01:48)
[2024-11-18] MEDS: AUGMENTIN 875 MG TAB PO ONE (01:48)
[2024-11-18 01:52] VITALS: BP 142/87; TEMP 97.1; O2SAT 95
== END 2024-11-18 01:53 | disposition home or self-care (01) ==
LOC: M ED 00:44
DX: K02.9 Dental caries, unspecified (principal); K08.89 Other specified disorders of teeth and supporting structures; J30.89 Other allergic rhinitis; Z79.899 Other long term (current) drug therapy; Z91.02 Food additives allergy status; Z91.018 Allergy to other foods